=== PATIENT | female | born 1965 | race Caucasian/White ===

== ENCOUNTER → 2018-10-02 11:24 | Outpatient (CLI) | payer OTHER, SELFPAY ==
--- NOTE | 2018-10-02 | DI.US.S_ITS ---
PROCEDURE: US PELVIC COMPLETE INDICATIONS: FOLLOW UP LEFT OVARIAN CYST TECHNIQUE: Real-time scanning was performed of the pelvic organs, with image documentation. Additional endovaginal scanning was necessary due to incomplete visualization of the adnexal and endometrial structures by transabdominal scanning. COMPARISON: [facility], US, PELVIC COMPLETE, 02/17/2018, 7:30. FINDINGS: Transabdominal scanning: Limited scanning through the kidneys shows no hydronephrosis. No pathologic free abdominal or pelvic fluid. Endovaginal scanning: Uterus: Uterus is normal in size at 7.2 x 5.0 x 4.6 cm. The endometrium measures 4.0 mm in combined thickness. Ovaries: Right ovary surgically absent. Complex and simple cysts involving the left ovary have resolved and the left ovary is normal in appearance on today's exam. Trace physiologic free fluid. IMPRESSION: Resolved left ovarian cyst. Dictated by: Tariq DEAN Interpreted: Eric Dee MD on 10/02/2018 at 12:58 Approved by: Eric Dee M.D. on 10/03/2018 at 9:39
== END ==
PROVIDERS: Visit Provider Nurse Practitioner Family
DX: N83.292 Other ovarian cyst, left side (principal)
CPT/HCPCS: 76830; 76856

== ENCOUNTER → 2019-03-16 15:48 | Outpatient (CLI) | payer OTHER, SELFPAY ==
--- NOTE | 2019-03-16 | DI.RAD.S_ITS ---
PROCEDURE: XR LUMBAR SPINE 2-3V INDICATIONS: LOW BACK PAIN TECHNIQUE: 3 views of the lumbar spine were acquired. [facility], 01/10/2004, 8:51. FINDINGS: Bones: 5 [id number] vertebrae are present. There is normal bony alignment. No vertebral body compression fractures. No suspicious bony lesions. There is moderate to severe degenerative disc disease and facet arthropathy at L5-S1. Soft tissues: Overlying bowel gas pattern is normal. No suspicious soft tissue calcifications. IMPRESSION: Moderate to severe degenerative disc disease and facet arthropathy at L5-S1. Dictated by: Eric Dee M.D. on 03/16/2019 at 17:19 Approved by: Eric Dee M.D. on 03/16/2019 at 17:21
== END ==
PROVIDERS: Visit Provider Internal Medicine
DX: M54.5 Low back pain (principal); M51.37 Other intervertebral disc degeneration, lumbosacral region; M47.817 Spondylosis without myelopathy or radiculopathy, lumbosacral region
CPT/HCPCS: 72100

== ENCOUNTER → 2019-05-19 13:44 | Outpatient (CLI) | payer OTHER, SELFPAY ==
--- NOTE | 2019-05-19 | DI.MG.S_ITS ---
BILATERAL DIGITAL SCREENING MAMMOGRAM 3D/2D WITH CAD WITH AUGMENTATION: 05/19/2019 CLINICAL: Patient presents for routine screening. S/P bilateral augmentation. Comparison is made to exams dated: 03/18/2018 mammogram, 11/06/2015 mammogram, and 04/19/2014 mammogram - [facility]. The tissue of both breasts is heterogeneously dense. This may lower the sensitivity of mammography. Current study was also evaluated with a Computer Aided Detection (CAD) system. Bilateral breast implants are stable. No significant masses, calcifications, or other findings are seen in either breast. There has been no significant interval change. IMPRESSION: NEGATIVE There is no mammographic evidence of malignancy. A 1 year screening mammogram is recommended. This exam was interpreted at Station ID: [id number]. NOTE: For mammograms, a report in lay terms will be sent to the patient. Approximately 15% of breast malignancies will not be visualized mammographically. In the management of a palpable breast mass, a negative mammogram must not discourage biopsy of a clinically suspicious lesion. Electronically Signed By: Lauren dalal/torsten:05/19/2019 15:10:46 copy to: Brodie Smith letter sent: Normal Exam ACR BI-RADS Category 1: Negative 3341F
== END ==
PROVIDERS: Visit Provider Internal Medicine
DX: Z12.31 Encounter for screening mammogram for malignant neoplasm of breast (principal); Z98.82 Breast implant status
CPT/HCPCS: 77063; 77067

== ENCOUNTER → 2019-08-24 12:49 | Outpatient (CLI) | payer OTHER, SELFPAY ==
--- NOTE | 2019-08-24 | DI.RAD.S_ITS ---
PROCEDURE: XR KNEE RT 3V INDICATIONS: Left and right knee pain, bilateral DJD TECHNIQUE: 3 views of the knee were acquired. COMPARISON: None. FINDINGS: Bones: No fractures or dislocations. No suspicious bony lesions. Scattered degenerative subchondral sclerosis and spurring. Mild narrowing of the medial joint space Soft tissues: Small joint effusion. IMPRESSION: Mild right knee joint degeneration. Small joint effusion Dictated by: Olman Álvarez M.D. on 08/24/2019 at 17:02 Approved by: Olman Álvarez M.D. on 08/24/2019 at 17:09
--- NOTE | 2019-08-24 | DI.RAD.S_ITS ---
PROCEDURE: XR KNEE LT 3V INDICATIONS: left and right knee pain, bilateral DJD TECHNIQUE: 3 views of the knee were acquired. COMPARISON: None. FINDINGS: Bones: No fractures or dislocations. No suspicious bony lesions. Scattered degenerative subchondral sclerosis and spurring. Moderate narrowing of the medial joint space. Soft tissues: No joint effusion. No suspicious soft tissue calcifications. IMPRESSION: Moderate left knee joint degeneration Dictated by: Olman Álvarez M.D. on 08/24/2019 at 16:34 Approved by: Olman Álvarez M.D. on 08/24/2019 at 16:35
== END ==
PROVIDERS: PCP Internal Medicine; Visit Provider Internal Medicine
DX: M25.561 Pain in right knee (principal); M25.562 Pain in left knee; M17.0 Bilateral primary osteoarthritis of knee
CPT/HCPCS: 73562

== ENCOUNTER 2020-01-04 13:07 | Emergency (ER) | payer OTHER, SELFPAY ==
[2020-01-04 13:09] VITALS: BP 133/66; PULSE 84; RESP 18; TEMP 36.9; O2SAT 98
--- NOTE | 2020-01-04 13:15 | DI.US.S_ITS ---
PROCEDURE: US PERIPH VENOUS LOW EXTREM LT INDICATIONS: L CALF PAIN AFTER PARTIAL KNEE REPLACEMENT TECHNIQUE: Real-time imaging, as well as color and pulse Doppler interrogation, were performed of the lower extremity deep veins from the inguinal ligament to the popliteal fossa. COMPARISON: None. FINDINGS: The common femoral, femoral and popliteal veins are normally compressible, and free of intraluminal thrombus. Color and pulse Doppler demonstrate normal phasic intraluminal flow. There is normal augmentation response to distal compression maneuver. IMPRESSION: No evidence of deep vein thrombosis of left lower extremity. Dictated by: Otis Beltran M.D. on 01/04/2020 at 13:25 Approved by: Otis Beltran M.D. on 01/04/2020 at 13:30
--- NOTE | 2020-01-04 14:14 | PC.NURSE ---
s/p left knee partial replacement 7 days ago, incision site clean dry, some redness and swelling. pt wearing support socks. c/o left calf pain onset last night., denies chest pain, or shortness of breath.
[2020-01-04 14:15] VITALS: BP 129/78; PULSE 70; RESP 16; O2SAT 97
--- NOTE | 2020-01-04 14:42 | ED_ITS ---
HPI - Extremity Problem General Chief complaint: Extremity Problem,Nontraumatic Stated complaint: KNEE SURGERY ON 3RD,PAIN IN CALF LEFT LEG Time Seen by Provider: 01/04/20 13:39 Source: patient Mode of arrival: Ambulatory Limitations: no limitations History of Present Illness HPI Narrative: Patient is a 54-year-old female. Approximately 10 days ago underwent a left partial knee replacement. She stated that she was scheduled to start physical therapy today. Over the past day or so she started having pain in her left calf. No chest pain. No shortness of breath. She called her operative surgeon who told her come into the emergency department to evaluate for potential blood clot. Related Data Home Medications Medication Instructions Recorded Confirmed multivitamin 1 tab PO DAILY #0 10/28/11 01/04/20 aspirin 325 mg PO PRN PRN 01/04/20 01/04/20 docusate sodium [DOK] 100 mg PO DAILY 01/04/20 01/04/20 hydroxyzine HCl 25 mg PO Q6H PRN 01/04/20 01/04/20 ibuprofen 200 mg PO PRN PRN 01/04/20 01/04/20 Allergies Allergy/AdvReac Type Severity Reaction Status Date / Time erythromycin base Allergy Intermediate HIVES, GI Verified 01/04/20 13:14 UPSET Sulfa (Sulfonamide Allergy Intermediate HIVES, GI Verified 01/04/20 13:14 Antibiotics) UPSET Review of Systems Constitutional Constitutional: Denies fever(s) and Denies headache(s) ENT Ears, Nose, Mouth, and Throat: Denies headache(s) Cardiovascular Cardiovascular: Denies chest pain and Denies dyspnea Respiratory Respiratory: Denies dyspnea Gastrointestinal Gastrointestinal: Denies abdominal pain Musculoskeletal Comments: Left knee pain, left calf pain Integumentary/Breasts Comments: Surgical incision left knee Neurologic Neurologic: Denies behavioral changes and Denies headache(s) Psychiatric Psychiatric: Denies behavioral changes Hematologic/Lymphatic Hematologic/Lymphatic: Denies easy bleeding and Denies easy bruising Patient History Surgical History History of third molar tooth extraction Status post appendectomy Status post bilateral salpingo-oophorectomy (BSO) Status post delivery Status post dilation and curettage Status post tonsillectomy and adenoidectomy Status post tubal ligation Social History Smoking Status: Never smoker Smoking Status: Never smoker alcohol intake frequency: 0-2 drinks per day Substance Use Type: does not use Exam Initial Vital Signs Initial Vital Signs: Vital Signs Temperature 98.4 F 01/04/20 13:09 Pulse Rate 84 01/04/20 13:09 Respiratory Rate 18 01/04/20 13:09 Blood Pressure 133/66 01/04/20 13:09 Pulse Oximetry 98 01/04/20 13:09 Skin Other: Surgical incision left anterior knee that appears well and is consistent with her stated history. Some bruising around the area however no signs of infection. Neuro Sensory Exam: no sensory deficits noted Extrem Other: Minimal if any swelling to the left knee. Does have tenderness mid calf region especially with flexion extension at the ankle on the left. Psych Appearance: grossly normal and well kempt Course Orders Ordered: ED Orders 01/04/20 13:15 US perip venous low extrem lt Stat Vital Signs Vital signs: Vital Signs - 8 hr 01/04/20 13:09 01/04/20 14:15 01/04/20 14:50 Temperature 98.4 F Pulse Rate 84 70 72 Respiratory Rate 18 16 Blood Pressure 133/66 Blood Pressure [Left Wrist] 129/78 Pulse Oximetry 98 97 98 MDM - Extremity (Nontraumatic) Imaging Data US - DVT: Radiologist's Impression: [place] [address] Ultrasound Report Signed Patient: Joyce Small BMR#: [id number] : 1965Acct:[id number] Age/Sex: 54 / FDate of Service: 01/04/20 Loc: ED Accession Number: [id number] Procedure: [facility] low extrem lt Ordering Provider: Domenico Cooper D.O. PROCEDURE: US PERIP VENOUS LOW EXTREM LT INDICATIONS: L CALF PAIN AFTER PARTIAL KNEE REPLACEMENT TECHNIQUE: Real-time imaging, as well as color and pulse Doppler interrogation, were performed of the lower extremity deep veins from the inguinal ligament to the popliteal fossa. COMPARISON: None. FINDINGS: The common femoral, femoral and popliteal veins are normally compressible, and free of intraluminal thrombus. Color and pulse Doppler demonstrate normal phasic intraluminal flow. There is normal augmentation response to distal compression maneuver. IMPRESSION: No evidence of deep vein thrombosis of left lower extremity. Dictated by: Otis Beltran M.D. on 01/04/2020 at 13:25 Approved by: Otis Beltran M.D. on 01/04/2020 at 13:30 [facility] Narrative Medical decision making narrative: No DVT on the ultrasound. Her skin incision looks well. No signs of infection. She is neurovascularly intact. The suspect that this is muscular pain. I discussed this with the patient. She was instructed that she could follow all of the instructions provided by her operative surgeon physical therapist. She was given return precautions. She expressed understanding and agreement plan. Discharge Plan Departure Patient Disposition: Home Clinical Impression: Post-operative pain, Pain of left calf Discharge Date/Time: 01/04/20 14:51 Activity Restrictions/Additional Instructions: There was no blood clot on your exam today. You are cleared to follow any instructions given to you by your operative surgeon/physical therapist. Return to the emergency department for any new or worsening symptoms Prescriptions: No Action multivitamin Tablet 1 tab PO DAILY Qty: 0 RF: 0 docusate sodium [DOK] 100 mg capsule 100 mg PO DAILY RF: 0 hydroxyzine HCl 25 mg tablet 25 mg PO Q6H PRN (Reason: Spasms) RF: 0 aspirin 325 mg Tablet 325 mg PO PRN PRN (Reason: pain) RF: 0 ibuprofen 200 mg Tablet 200 mg PO PRN PRN (Reason: pain) RF: 0 Referrals: Valerie Shell ARNP [Primary Care Provider] -
[2020-01-04 14:50] VITALS: PULSE 72; O2SAT 98
== END 2020-01-04 14:51 | disposition home or self-care (01) ==
PROVIDERS: Emergency Provider Emergency Medicine; PCP Internal Medicine
DX: G89.18 Other acute postprocedural pain (principal); M79.662 Pain in left lower leg
CPT/HCPCS: 93971; 99283

== ENCOUNTER → 2021-09-13 11:00 | Outpatient (CLI) | payer OTHER, SELFPAY ==
--- NOTE | 2021-09-13 | DI.US.S_ITS ---
PROCEDURE: US PELVIC COMPLETE INDICATIONS: IRREGULAR MENSES AND MENORRHAGIA TECHNIQUE: Real-time scanning was performed of the pelvic organs, with image documentation. Additional endovaginal scanning was necessary due to incomplete visualization of the adnexal and endometrial structures by transabdominal scanning. COMPARISON: [facility], US, PELVIC LIMITED, 09/09/2011, 11:33. [facility], , PELVIC COMPLETE, 02/17/2018, 7:30. [facility], PELVIC COMPLETE, 10/02/2018, 11:40. FINDINGS: Uterus: Uterus is normal in size at 8.2 x 5 x 5 cm. The endometrium measures 3 mm in combined thickness. The uterus demonstrates a heterogeneous appearance, yet without focal fibroids identified. Incidental note is made of nabothian cysts. Ovaries: The right ovary has been removed. The left ovary is not well seen. Within the left adnexal region, there is a septated cyst that measures 17 x 25 x 6 mm. Other: No pathologic free abdominal or pelvic fluid. Note is made of a postvoid urinary bladder residual of 111 cc. IMPRESSION: Septated cyst seen involving the left adnexal region. The left ovary itself is not well seen. If it would be clinically appropriate, a followup pelvic ultrasound could be considered in 6 weeks to assure resolution/ improvement. Heterogeneous uterus, without focal fibroids identified. Moderate urinary bladder postvoid residual, 111 cc. Dictated by: Heath Hart M.D. on 09/13/2021 at 11:53 Approved by: Heath Hart M.D. on 09/13/2021 at 11:56
== END ==
PROVIDERS: PCP Internal Medicine; Referring Provider Internal Medicine; Visit Provider Internal Medicine
DX: N92.6 Irregular menstruation, unspecified (principal); N92.0 Excessive and frequent menstruation with regular cycle; N94.89 Other specified conditions associated with female genital organs and menstrual cycle
CPT/HCPCS: 76856

== ENCOUNTER → 2021-09-25 09:03 | Outpatient (CLI) | payer OTHER, SELFPAY ==
--- NOTE | 2021-09-25 | DI.MG.S_ITS ---
BILATERAL DIGITAL SCREENING MAMMOGRAM 3D/2D WITH CAD WITH AUGMENTATION: 09/25/2021 CLINICAL: Routine screening. Comparison is made to exams dated: 05/19/2019 mammogram, 03/18/2018 mammogram, and 11/06/2015 mammogram - [facility]. The tissue of both breasts is heterogeneously dense. This may lower the sensitivity of mammography. Current study was also evaluated with a Computer Aided Detection (CAD) system. Bilateral breast implants are stable. No significant masses, calcifications, or other findings are seen in either breast. There has been no significant interval change. IMPRESSION: NEGATIVE There is no mammographic evidence of malignancy. A 1 year screening mammogram is recommended. This exam was interpreted at Station ID: [id number]. NOTE: For mammograms, a report in lay terms will be sent to the patient. Approximately 15% of breast malignancies will not be visualized mammographically. In the management of a palpable breast mass, a negative mammogram must not discourage biopsy of a clinically suspicious lesion. Electronically Signed By: Jorge rodriguez/torsten:09/25/2021 09:40:00 letter sent: Normal Exam ACR BI-RADS Category 1: Negative 3341F
== END ==
PROVIDERS: PCP Internal Medicine; Referring Provider Internal Medicine; Visit Provider Internal Medicine
DX: Z12.31 Encounter for screening mammogram for malignant neoplasm of breast (principal)
CPT/HCPCS: 77063; 77067

== ENCOUNTER → 2021-10-31 12:32 | Outpatient (CLI) | payer OTHER, SELFPAY ==
[2021-10-31 15:03] LABS: Cancer Antigen 125 < 5.5 U/mL (0-35)
== END ==
PROVIDERS: PCP Internal Medicine; Referring Provider Obstetrics & Gynecology; Visit Provider Obstetrics & Gynecology
DX: R10.2 Pelvic and perineal pain (principal); R19.09 Other intra-abdominal and pelvic swelling, mass and lump
CPT/HCPCS: 36415; 86304

== ENCOUNTER → 2022-02-26 14:59 | Outpatient (CLI) | payer OTHER, SELFPAY ==
--- NOTE | 2022-02-26 15:00 | DI.US.S_ITS ---
PROCEDURE: US PELVIC COMPLETE INDICATIONS: Abnormal uterine and vaginal bleeding, unspecified TECHNIQUE: Real-time scanning was performed of the pelvic organs, with image documentation. Additional endovaginal scanning was necessary due to incomplete visualization of the adnexal and endometrial structures by transabdominal scanning. COMPARISON: [facility], US, US PELVIC COMPLETE, 11/02/2021, 11:24. FINDINGS: Uterus: Uterus is retroverted, measuring 7.6 x 4.5 x 6.3 cm. The myometrium is heterogeneous. The endometrium measures 8.6 mm combined thickness. Hypoechoic lesions are seen about the endometrial canal, which may reflect hyperplasia. A round hypoechoic lesion is seen in the right aspect of the uterus, measuring up to 8.6 mm, most consistent with a intramural fibroid. Ovaries: The right ovary is surgically absent. The left ovary is not visualized. Other: No pathologic free abdominal or pelvic fluid. IMPRESSION: Thickening of the endometrium with multi-cystic change, concerning for hyperplasia. A neoplastic process can not be excluded. We strive to produce accurate, complete, and clear reports of imaging services. To assist us in improving patient care, this report was composed using standard report templates and voice recognition software. Therefore, it may contain abnormal punctuation, insertions and/or omissions. Occasional wrong-word or sound-alike substitutions may occur. Though we review the report and make efforts to correct it, we do recommend that the report be read carefully in proper context to recognize any text inaccuracies. Dictated by: Clark Davis M.D. on 02/26/2022 at 16:46 Approved by: Clark Davis M.D. on 02/26/2022 at 16:49
== END ==
PROVIDERS: PCP Internal Medicine; Referring Provider Obstetrics & Gynecology; Visit Provider Obstetrics & Gynecology
DX: N93.9 Abnormal uterine and vaginal bleeding, unspecified (principal); R93.89 Abnormal findings on diagnostic imaging of other specified body structures
CPT/HCPCS: 76830; 76856

== ENCOUNTER → 2022-03-28 10:06 | Outpatient (CLI) | payer OTHER, SELFPAY ==
--- NOTE | 2022-03-28 | DI.RAD.S_ITS ---
PROCEDURE: XR RIBS LT MIN 3V W CXR1V INDICATIONS: left rib pain TECHNIQUE: 2 views of the left ribs were acquired, along with a single view chest. COMPARISON: None. FINDINGS: Surgical changes and devices: None. Bones and chest wall: No fractures or dislocations. No suspicious bony lesions. Overlying soft tissues appear unremarkable. Lungs and pleura: No pleural effusions or pneumothorax. Lungs appear clear. Mediastinum: Mediastinal contours appear normal. Heart size is normal. IMPRESSION: No displaced rib fracture. No acute cardiopulmonary disease process. Dictated by: Bere Reardon MD, PhD on 03/28/2022 at 12:59 Approved by: Bere Reardon MD, PhD on 03/28/2022 at 12:59
== END ==
PROVIDERS: PCP Internal Medicine; Referring Provider Internal Medicine; Visit Provider Internal Medicine
DX: R07.81 Pleurodynia (principal)
CPT/HCPCS: 71101

== ENCOUNTER → 2023-07-23 14:37 | Outpatient (CLI) | payer OTHER, SELFPAY ==
--- NOTE | 2023-07-23 14:40 | DI.RAD.S_ITS ---
PROCEDURE: XR KNEE RT 3V INDICATIONS: RIGHT KNEE PAIN TECHNIQUE: 3 views of the knee were acquired. COMPARISON: [facility], , XR KNEE RT 3V, 08/24/2019, 12:54. FINDINGS: Bones: No fractures or dislocations. No suspicious bony lesions. Tricompartmental osteoarthritic changes with marginal spurring and severe joint space narrowing of the medial compartment. Soft tissues: Small joint effusion. No suspicious soft tissue calcifications. IMPRESSION: Tricompartmental osteoarthritic changes with severe joint space narrowing of the medial compartment. Dictated by: Margarito Swan M.D. on 07/23/2023 at 15:23 Approved by: Margarito Swan M.D. on 07/23/2023 at 15:23
--- NOTE | 2023-07-23 14:40 | DI.RAD.S_ITS ---
PROCEDURE: XR KNEE LT 3V INDICATIONS: LEFT KNEE PAIN TECHNIQUE: 3 views of the knee were acquired. COMPARISON: [facility], CR, XR KNEE 1 OR 2 VIEWS LEFT, 05/09/2020, 11:34. [facility], CR, XR KNEE RT 3V, 08/24/2019, 12:54. FINDINGS: Bones: Stable appearance of medial femorotibial compartment arthroplasty. Hardware appears intact and in appropriate position. No surrounding lucency or fracture. No fractures or dislocations. No suspicious bony lesions. Redemonstration of osteoarthritic changes in the lateral and patellofemoral compartments. Soft tissues: No joint effusion. No suspicious soft tissue calcifications. IMPRESSION: Stable appearance of medial femorotibial compartment arthroplasty. Redemonstration of osteoarthritic changes in the lateral and patellofemoral compartments. Dictated by: Margarito Swan M.D. on 07/23/2023 at 15:24 Approved by: Margarito Swan M.D. on 07/23/2023 at 15:25
--- NOTE | 2023-07-23 14:40 | DI.RAD.S_ITS ---
PROCEDURE: XR LUMBAR SPINE MIN 4V INDICATIONS: BACK PAIN TECHNIQUE: 5 views of the lumbar spine were acquired, including bilateral oblique views. COMPARISON: [facility], , XR LUMBAR SPINE 2-3V, 03/16/2019, 15:58. FINDINGS: Bones: 5 nonrib-bearing vertebrae are present. There is normal bony alignment. Moderate to severe degenerative disc disease at L5-S1. Facet arthropathy of the lower lumbar spine. No vertebral body compression fractures. No suspicious bony lesions. Soft tissues: Overlying bowel gas pattern is normal. No suspicious soft tissue calcifications. Surgical clips projecting over the right pelvis. Oblique images: No definite pars defects. IMPRESSION: Redemonstration of moderate to severe degenerative disc disease at L5-S1. No vertebral body compression fractures. Dictated by: Margarito Swan M.D. on 07/23/2023 at 15:21 Approved by: Margarito Swan M.D. on 07/23/2023 at 15:22
--- NOTE | 2023-07-23 14:40 | DI.RAD.S_ITS ---
PROCEDURE: XR HAND RT MIN 3V INDICATIONS: RIGHT HAND PAIN TECHNIQUE: 3 views of the hand(s) acquired. COMPARISON: None. FINDINGS: Bones: No fractures or dislocations. Carpal bones are normally aligned. No suspicious bony lesions. Moderate osteoarthritic changes, most pronounced at the 2nd and 3rd distal interphalangeal joints and first carpometacarpal joint. Juxtacortical lucencies of the 3rd proximal interphalangeal joints. Soft tissues: No suspicious soft tissue calcifications. IMPRESSION: No acute osseous abnormalities. Osteoarthritic changes of the hand, most pronounced at the 2nd and 3rd distal interphalangeal joints and 1st carpometacarpal joint. Juxtacortical lucencies at the 3rd proximal interphalangeal joint, may represent subchondral cystic changes versus erosions. Dictated by: Margarito Swan M.D. on 07/23/2023 at 15:31 Approved by: Margarito Swan M.D. on 07/23/2023 at 15:33
--- NOTE | 2023-07-23 14:40 | DI.RAD.S_ITS ---
PROCEDURE: XR HAND LT MIN 3V INDICATIONS: LEFT HAND PAIN TECHNIQUE: 3 views of the hand(s) acquired. COMPARISON: None. FINDINGS: Bones: No fractures or dislocations. Carpal bones are normally aligned. Osteoarthritic changes , worse at the 2nd and 3rd distal interphalangeal joints with joint space narrowing, osteophytosis. Ulnar subluxation of the 2nd distal interphalangeal joint. Juxtacortical lucencies are seen. Additional osteoarthritic changes of the 1st carpometacarpal joint. No suspicious bony lesions. Soft tissues: No suspicious soft tissue calcifications. IMPRESSION: Osteoarthritic changes of the hand, most pronounced at the 2nd and 3rd distal interphalangeal joints as described above. Juxtacortical lucencies are seen which may represent subcortical cystic changes versus erosions. Dictated by: Margarito Swan M.D. on 07/23/2023 at 15:25 Approved by: Margarito Swan M.D. on 07/23/2023 at 15:27
== END ==
PROVIDERS: PCP Internal Medicine; Referring Provider Physical Medicine & Rehabilitation; Visit Provider Physical Medicine & Rehabilitation
DX: M51.36 Other intervertebral disc degeneration, lumbar region (principal); M54.9 Dorsalgia, unspecified; M79.642 Pain in left hand; M25.561 Pain in right knee; M25.562 Pain in left knee; M79.641 Pain in right hand; Z96.652 Presence of left artificial knee joint
CPT/HCPCS: 72110; 73130; 73562

== ENCOUNTER → 2024-05-14 15:21 | Outpatient (CLI) | payer OTHER, SELFPAY ==
[2024-05-14 16:09] LABS: Add Manual Diff / Slide Review NO; Basophils Absolute Auto 0 /uL (0-100); Basophils Percent Auto 0.7 % (0-2); Eosinophils Absolute Auto 200 /uL (0-450); Eosinophils Percent Auto 2.5 % (2-4); Hematocrit 38.5 % (36-46); Hemoglobin 13.3 g/dL (12.0-16.0); Lymphocytes Absolute Auto 1700 /uL (1100-4500); Lymphocytes Percent Auto 28.4 % (25-40); Mean Corpuscular HGB Conc 34.5 % (30-36); Mean Corpuscular Hemoglobin 31.5 PG (26-34); Mean Corpuscular Volume 91.1 fL (80-100); Monocytes Absolute Auto 700 /uL (0-900); Monocytes Percent Auto 11.2 % (3-14); Neutrophils Absolute Auto 3400 /uL (1500-7000); Neutrophils Percent Auto 57.2 % (50-75); Platelet Count 304 X10^3/uL (150-400); Red Blood Cell Count 4.23 X10^6/uL (4.0-5.2); Red Cell Distribution Width 12.8 % (11.6-14.8); White Blood Cell Count 5.9 X10^3/uL (4.5-11.0)
[2024-05-14 16:39] LABS: INR 0.9 (0.9-1.3); Prothrombin Time 10.7 SECONDS (9.4-12.5)
[2024-05-14 16:41] LABS: PTT Partial Thromboplastin Tim 35 SECONDS (25.1-36.5)
[2024-05-14 16:48] LABS: Alanine Aminotransferase 22 IU/L (<35); Albumin 4.3 g/dL (3.5-5.0); Albumin Globulin Ratio 1.3 (1.0-2.8); Alkaline Phosphatase 62 U/L (38-126); Aspartate Aminotransferase 26 IU/L (14-36); BUN Creatinine Ratio 29.6 (6-22); Bilirubin Total 0.4 mg/dL (0.2-1.3); Blood Urea Nitrogen 21 mg/dL (7-17); Calcium 9.8 mg/dL (8.4-10.2); Carbon Dioxide 25 mmol/L (22-32); Chloride 110 mmol/L (98-107); Cholesterol 278 mg/dL (140-199); Estimated Glomerular Filt Rate > 60 mL/min (>60); Globulin 3.2 g/dL (1.7-4.1); Glucose 90 mg/dL (70-100); HDL Cholesterol 70 mg/dL (40-60); HEMOLYSIS < 15 (0-50); LDL Cholesterol Calculated 176 mg/dL (<100); Potassium 3.8 mmol/L (3.4-5.1); Sodium 140 mmol/L (137-145); Total Protein 7.5 g/dL (6.3-8.2); Triglycerides 158 mg/dL (35-150)
[2024-05-14 17:15] LABS: TSH w/ Reflex to FT4 < 0.02 uIU/mL (0.47-4.68)
[2024-05-14 17:41] LABS: Free T4, Direct Thyroxine 1.04 ng/dL (0.78-2.19)
== END ==
PROVIDERS: PCP Internal Medicine; Referring Provider Internal Medicine; Visit Provider Internal Medicine
DX: Z13.29 Encounter for screening for other suspected endocrine disorder (principal); Z01.818 Encounter for other preprocedural examination; E78.00 Pure hypercholesterolemia, unspecified
CPT/HCPCS: 36415; 80053; 80061; 82985; 84439; 84443; 85025; 85610; 85730; 87081

== ENCOUNTER → 2024-05-14 16:26 | Outpatient (ROUT) | payer OTHER, SELFPAY | PROVIDERS: PCP Internal Medicine; Visit Provider Internal Medicine | DX: Z01.818 Encounter for other preprocedural examination (principal) | CPT/HCPCS: 87081 ==

== ENCOUNTER → 2024-08-26 17:05 | Outpatient (CLI) | payer OTHER, SELFPAY ==
--- NOTE | 2024-08-26 17:07 | DI.MG.S_ITS ---
BILATERAL DIGITAL SCREENING MAMMOGRAM 3D/2D WITH CAD WITH AUGMENTATION: 08/26/2024 CLINICAL: Routine screening. Comparison is made to exams dated: 09/25/2021 mammogram, 05/19/2019 mammogram, and 03/18/2018 mammogram - [facility]. The breasts are heterogeneously dense, which may obscure small masses (category c / 51-75% glandular tissue). Current study was also evaluated with a Computer Aided Detection (CAD) system. Bilateral breast implants are present. No significant masses, calcifications, or other findings are seen in either breast. There has been no significant interval change. IMPRESSION: NEGATIVE There is no mammographic evidence of malignancy. A 1 year screening mammogram is recommended. Based on the Tyrer Cuzick model (a risk assessment model) the patient's lifetime risk is 10.2% and her 10 year risk is 3.7%. According to the ACR, ACS, and NCCN guidelines, an annual breast MRI exam along with mammogram is recommended if the patient's lifetime risk is 20% or greater. This exam was interpreted at Station ID: [id number]. NOTE: For mammograms, a report in lay terms will be sent to the patient. Approximately 15% of breast malignancies will not be visualized mammographically. In the management of a palpable breast mass, a negative mammogram must not discourage biopsy of a clinically suspicious lesion. Electronically Signed By: Zheng torres/torsten:08/27/2024 08:10:48 letter sent: Normal Exam ACR BI-RADS Category 1: Negative
== END ==
LOC: MAMMO 17:05
PROVIDERS: PCP Internal Medicine; Referring Provider Internal Medicine; Visit Provider Internal Medicine
DX: Z12.31 Encounter for screening mammogram for malignant neoplasm of breast (principal); R92.333 Mammographic heterogeneous density, bilateral breasts
CPT/HCPCS: 77063; 77067